=== PATIENT | male | born 1970 | race Caucasian/White ===

== ENCOUNTER 2025-05-08 10:50 | Emergency (ER) | payer OTHER, SELFPAY ==
[2025-05-08 11:08] VITALS: BP 165/107; PULSE 100; RESP 18; TEMP 36.3; O2SAT 96
--- OUTSIDE RECORDS SUMMARY | 2025-05-08 11:33 | XMS_ITS | Clinical Summary ---
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 Name Role Phone Unavailable Primary Care Provider Unavailabl e Immunizations Immunization Administration Dates Next Due Covid-19, Mrna, Lnp-s, PF, 5 0 mcg/0.25 mL dose (Moderna) 05/14/2021 Social History Tobacco Use Types Packs/Day Years Used Date Smoking Tobacco: Never Assessed Sex and Gender Information Value Date Recorded Sex Assigned at Not on file Legal Sex Male 12:54 PM [employer] Gender Identity Not on file Sexual Orientation Not on file Plan of Treatment Health Maintenance Due Date Last Done Comments Hepatitis C Virus (HCV) Screening 1970 TdaP Immunization 1970 Cologuard 08/16/2015 Colonoscopy 08/16/2015 Colorectal Cancer Screening 08/16/2015 Immunochemical Fecal Occult Blood 08/16/2015 Hepatitis B Immunization (2 of 3 - 19+ 3-dose series) 03/18/2020 02/19/2020 Zoster Immunization (1 of 2) 2020 Pneumococcal Immunization (5 0+ years) (2 of 2 - PCV) 01/16/2021 01/17/2020 Influenza Immunization (#1) 2025 SARS-COV-2 Immunization (2 - 2024- season) 2025 05/14/2021 Respiratory Syncytial Virus (RSV) Immunization (Adult) (1 - 1-dose 75+ series) 2045 DTaP/Tdap/Td Immunization Discontinued 2012, 10/12/2007 Pneumococcal Immunization Combined Discontinued 01/17/2020 Human Papillomavirus (HPV) Immunization (No Doses Required) Completed Meningococcal Immunization (ACWY) Aged Out No longer eligible based on patient's age to complete this topic Rotavirus Immunization Aged Out No lo nger eligible based on patient's age to complete this topic
--- NOTE | 2025-05-08 11:45 | ED.GENADULT ---
HPI - General Adult General Chief complaint: Eye Problems Stated complaint: blur vision Source: patient Mode of arrival: ambulatory Limitations: no limitations History of Present Illness HPI narrative: Patient presents for evaluation of visual disturbance. Symptom onset yesterday morning upon waking for the day. He indicates that he had blurred vision in the last about 4 hours but later resolved. This morning he had a similar visual disturbance. He is planning on leaving for a trip to [place] in two days and his advised they would cancel the trip unless he was evaluated before the trip by a medical provider. He noted some weakness on the right side of his body yesterday but states that has improved. He has an underlying history of hypertension and hyperlipidemia. He stopped taking his statin medication because he read about potential side effects. He has a longstanding history of smoking but states he quit this past weekend. He denies any problems with speech. Related Data Home Medications ?Medication ?Instructions ?Recorded ?Confirmed ?Last Taken ?Type No Home Medications 05/08/25 05/08/25 Unknown History Allergies Allergy/AdvReac Type Severity Reaction Status Date / Time No Known Allergies Allergy Verified 05/08/25 11:07 Review of Systems Review of Systems: CONSTITUTIONAL: Denies fever, chills, or sweats. EYES: Reports blurred vision yesterday and again today, since improved. ENT: Denies rhinorrhea, congestion, sore throat, or otalgia. CARDIOVASCULAR: Denies chest pain, palpitations, or edema. RESPIRATORY: Denies cough or dyspnea. GASTROINTESTINAL: Denies abdominal pain, nausea, vomiting, or diarrhea. GENITOURINARY: Denies dysuria or hematuria. SKIN: Denies rash or itching. MUSCULOSKELETAL: Denies back pain, joint pain, or myalgia. NEUROLOGIC: Reports right sided weakness yesterday, since improved. Denies headache, numbness, dizziness. PSYCHIATRIC: Denies anxiety or depression. [facility] Past Medical History Medical History Hyperlipidemia Hypertension Surgical History Surgical History No pertinent past surgical history Family History Family History Mother Family history non-contributory Social History Social History Smoking status: Former smoker Tobacco type: cigarettes Living arrangements: with family Gender identity (if verbalized by the patient): Male Sexual Orientation (if Verbalized by the Patient): Straight or Heterosexual Exam Narrative: GENERAL: Well-appearing, well-nourished, and in no acute distress. HEAD: Normocephalic, atraumatic. EYES: PERRLA and EOMI. ENT: Nares clear, no rhinorrhea or epistaxis. Mucous membranes moist. Oropharynx without tonsillar hypertrophy exudate or other lesions. Bilateral TMs pearly benítez nonbulging NECK: Supple. No adenopathy or masses. No carotid bruits or JVD CHEST: Clear to auscultation. No respiratory distress. No wheezes rales or rhonchi HEART: Regular rate and rhythm. No murmur heard. Normal peripheral pulses. ABDOMEN: Soft, nontender, nondistended, normal active bowel sounds. EXTREMITIES: Normal range of motion. No edema. SKIN: Warm, dry, no rash. NEURO: No focal deficits. Alert and oriented x3. PSYCH: Normal mood and affect. Course Course Emergency Course: this is a 54-year-old male who presented for evaluation of visual disturbance of right-sided weakness. His blood pressure on arrival was 190/110's. He has 5/5 strength against resistance, face is symmetric and I do not appreciate any neurological deficits other than reported visual disturbance that was confirmed upon visual acuity. He has several risk factors for stroke. I recommended he be transferred to the ER for further evaluation. [place] is his facility of choice. I contacted the ER at [facility] and spoke with Dr Jackson, who agreed to accept pt for transfer. Pt was transferred to the ER by family per private vehicle. Level of Care: Express Care Visit Vital Signs Vital signs: Vital Signs Temperature 36.3 C L 05/08/25 11:08 Pulse Rate 100 05/08/25 11:08 Respiratory Rate 18 05/08/25 11:08 Blood Pressure 165/107 H 05/08/25 11:08 Pulse Oximetry 96 05/08/25 11:08 Oxygen Delivery Room Air 05/08/25 11:08 Temperature 36.3 C L 05/08/25 11:08 Pulse Rate 100 05/08/25 11:08 Respiratory Rate 18 05/08/25 11:08 Blood Pressure 165/107 H 05/08/25 11:08 Pulse Oximetry 96 05/08/25 11:08 Oxygen Delivery Room Air 05/08/25 11:08 [facility] Differential Diagnosis Differential Diagnosis: Orbital thrombus versus CVA versus TIA versus ocular migraine versus other Discharge Plan Discharge Clinical Impression: Hypertensive urgency, Visual disturbance, Weakness Patient Disposition: Acute Care Hospital Condition: Stable Patient Language: Gu[place] Prescriptions: No Action No Home Medications Time of Disposition: 11:45
== END 2025-05-08 11:42 | disposition short-term general hospital (02) ==
PROVIDERS: Emergency Provider Nurse Practitioner
DX: H53.8 Other visual disturbances (principal); I10 Essential (primary) hypertension; R53.1 Weakness; E78.5 Hyperlipidemia, unspecified
CPT/HCPCS: 99212; G0463